=== PATIENT | male | born 1955 | race American Indian/Alaskan Native ===

== ENCOUNTER 2018-03-14 13:26 | Emergency (ER) | payer SELFPAY ==
[2018-03-14 13:33] VITALS: BP 133/81
--- NOTE | 2018-03-14 16:59 | Emergency Department Report ---
ED General Adult HPI - General Chief complaint: Abdominal Pain Stated complaint: ABD PAIN Time Seen by Provider: 03/14/18 16:30 Source: patient Mode of arrival: Ambulatory Limitations: No Limitations - History of Present Illness Initial comments: Patient is 62 years old male with no significant past medical history except for right inguinal hernia that was repair 2 years ago. Patient presented to the ER today complaining of left inguinal hernia. Patient stated that he went to [place] 2 days ago and he had an ultrasound done and he was told that he has left inguinal hernia and he gave him and follow-up with surgeon. Patient stated that when he called to make an appointment at all and that she [place] any need to follow up back at [facility]. Patient stated that he is able to reduce the hernia without any difficulty. Patient also denied any nausea or vomiting or fever. Patient stated that he just wants something to help the pain and a referral to surgeon. - Related Data Previous Rx's Medication Instructions Recorded Last Taken Type HYDROcodone/APAP 5-325 [[place] 1 each PO Q6HR PRN #14 tablet 03/14/18 Unknown Rx 5/325] Naproxen [Naprosyn] 500 mg PO BID #14 tablet 03/14/18 Unknown Rx Ondansetron [Zofran Odt] 4 mg PO Q8HR PRN #14 tab.rapdis 03/14/18 Unknown Rx Allergies Allergy/AdvReac Type Severity Reaction Status Date / Time pork derived (porcine) Allergy Nausea Verified 03/14/18 13:31 ED Review of Systems ROS: Stated complaint: ABD PAIN Other details as noted in HPI Comment: All other systems reviewed and negative Constitutional: denies: chills, fever Respiratory: denies: cough, orthopnea Gastrointestinal: denies: abdominal pain, nausea, vomiting, diarrhea, constipation, hematemesis, melena, hematochezia Neurological: denies: headache, weakness, numbness, paresthesias ED Past Medical Hx - Past Medical History Previous Medical History?: No - Surgical History Additional Surgical History: Hernia - Social History Smoking Status: Current Every Day Smoker Substance Use Type: Alcohol - Medications Home Medications: Home Medications Medication Instructions Recorded Confirmed Last Taken Type HYDROcodone/APAP 5-325 [[place] 1 each PO Q6HR PRN #14 tablet 03/14/18 Unknown Rx 5/325] Naproxen [Naprosyn] 500 mg PO BID #14 tablet 03/14/18 Unknown Rx Ondansetron [Zofran Odt] 4 mg PO Q8HR PRN #14 tab.rapdis 03/14/18 Unknown Rx ED Physical Exam - General Limitations: No Limitations General appearance: alert, in no apparent distress - Head Head exam: Present: atraumatic, normocephalic, normal inspection - ENT ENT exam: Present: normal exam, normal orophraynx, mucous membranes moist - Neck Neck exam: Present: normal inspection, full ROM. Absent: tenderness, meningismus - Respiratory Respiratory exam: Present: normal lung sounds bilaterally - Cardiovascular Cardiovascular Exam: Present: regular rate, normal rhythm, normal heart sounds - GI/Abdominal GI/Abdominal exam: Present: soft, normal bowel sounds, hernia (left inguinal hernia, reducible and with no evidence of incarceration.). Absent: distended, tenderness, guarding, rebound, rigid, organomegaly, mass, bruit, pulsatile mass ED Course Vital Signs 03/14/18 13:31 Temperature 99.1 F Pulse Rate 70 Respiratory 18 Rate Blood Pressure 133/81 O2 Sat by Pulse 98 Oximetry Critical care attestation.: If time is entered above; I have spent that time in minutes in the direct care of this critically ill patient, excluding procedure time. ED Disposition Clinical Impression: Inguinal hernia of left side without obstruction or gangrene Disposition: TO HOME OR SELFCARE Is pt being admited?: No Condition: Stable Instructions: Inguinal Hernia (ED) Prescriptions: HYDROcodone/APAP 5-325 [[place] 5/325] 1 each PO Q6HR PRN #14 tablet PRN Reason: Pain Naproxen [Naprosyn] 500 mg PO BID #14 tablet Ondansetron [Zofran Odt] 4 mg PO Q8HR PRN #14 tab.rapdis PRN Reason: Nausea And Vomiting Referrals: MICHAEL GRAFF MD [Staff Physician] - 3-5 Days
== END 2018-03-14 17:27 | disposition home or self-care (01) ==
LOC: ED 13:26
DX: K40.90 Unilateral inguinal hernia, without obstruction or gangrene, not specified as recurrent (principal); F17.200 Nicotine dependence, unspecified, uncomplicated
CPT/HCPCS: 99282